=== PATIENT | male | born 1970 | race Caucasian/White ===

== ENCOUNTER 2019-03-19 19:49 | Emergency (ER) | payer SELFPAY ==
--- NOTE | 2019-03-19 21:20 | EDM.PDOC ---
ED HPI GENERAL MEDICAL PROBLEM - General Chief Complaint: Skin Complaint Stated Complaint: INFECTION IN BOTH ANKLES Time Seen by Provider: 03/19/19 19:58 Source of Information: Reports: Patient History Limitations: Reports: No Limitations - History of Present Illness INITIAL COMMENTS - FREE TEXT/NARRATIVE: walked in [employer] the other day; hx of cellulitis to LE; has severe neuropathy; no reason found. Feels the redness, swelling and blisters are worsening; concerned for infection. Onset: Gradual Onset Date: 03/16/19 Location: Reports: Lower Extremity, Left, Lower Extremity, Right Quality: Reports: Burning Severity: Moderate Improves with: Reports: None Worsens with: Reports: None Associated Symptoms: Reports: Rash Treatments RUG INSPECTOR HELPER: Reports: Other (see below) Other Treatments RUG INSPECTOR HELPER: unknown - Related Data Allergies Allergy/AdvReac Type Severity Reaction Status Date / Time No Known Allergies Allergy Verified 03/19/19 21:07 Home Meds: Home Meds *Synthroid 2 tab PO DAILY 03/19/19 [History] Past Medical History Musculoskeletal History: Reports: Fracture Neurological History: Reports: Concussion, Neuropathy, Peripheral Endocrine/Metabolic History: Reports: Hypothyroidism Dermatologic History: Reports: Cellulitis, Chronic Cellulitis - Infectious Disease History Infectious Disease History: Reports: Chicken Pox, Mononucleosis Social & Family History - Tobacco Use Smoking Status *Q: Never Smoker - Caffeine Use Caffeine Use: Reports: Coffee - Recreational Drug Use Recreational Drug Use: No ED ROS GENERAL - Review of Systems Review Of Systems: See Below Constitutional: Reports: No Symptoms Respiratory: Reports: No Symptoms Cardiovascular: Reports: No Symptoms GI/Abdominal: Reports: No Symptoms Musculoskeletal: Reports: No Symptoms Skin: Reports: Rash, Erythema, Other (blisters to both ankles) Neurological: Reports: No Symptoms Psychiatric: Reports: No Symptoms ED EXAM, SKIN/RASH Exam: See Below Exam Limited By: No Limitations General Appearance: Alert, WD/WN, No Apparent Distress Head: Atraumatic, Normocephalic Neck: Normal Inspection Respiratory/Chest: No Respiratory Distress, Lungs Clear, Normal Breath Sounds Cardiovascular: Regular Rate, Rhythm Peripheral Pulses: 3+: Posterior Tibial (L), Posterior Tibial (R), Dorsalis Pedis (L), Dorsalis Pedis (R) GI/Abdominal: Normal Bowel Sounds, Soft Extremities: Normal Range of Motion, Other (has neuropathy; rash present to both ankles with blistering, redness, mild swelling) Skin: Erythema, Rash, Other (blisters) Location, Skin: Upper Extremity, Left (ankles), Lower Extremity, Right Characteristics: Vesicular, Erythematous Associated features: Warmth, Tenderness, Swelling, Inflammation, Weeping Course - Vital Signs Last Recorded V/S: Last Vital Signs Temp 95.7 F 03/19/19 21:09 Pulse 100 03/19/19 21:09 Resp 17 03/19/19 21:09 BP 142/99 H 03/19/19 21:09 Pulse Ox 96 03/19/19 21:09 Departure - Departure Time of Disposition: 21:18 Disposition: Home, Self-Care 01 Condition: Good Clinical Impression: Cellulitis, Cellulitis of lower extremity, Poison jen - Discharge Information *PRESCRIPTION DRUG MONITORING PROGRAM REVIEWED*: Not Applicable *COPY OF PRESCRIPTION DRUG MONITORING REPORT IN PATIENT NATI: Not Applicable Instructions: Cellulitis, Adult Referrals: PCP,None [Primary Care Provider] - Forms: ED Department Discharge - Problem List & Annotations (1) Cellulitis of lower extremity SNOMED Code(s): 876741106 Code(s): L03.119 - CELLULITIS OF UNSPECIFIED PART OF LIMB Status: Acute Priority: Medium Current Visit: Yes Qualifiers: Laterality: left Qualified Code(s): L03.116 - Cellulitis of left lower limb (2) Poison jen SNOMED Code(s): 299234541 Code(s): L23.7 - ALLERGIC CONTACT DERMATITIS DUE TO PLANTS, EXCEPT FOOD Status: Acute Priority: Medium Current Visit: Yes - Problem List Review Problem List Initiated/Reviewed/Updated: Yes
== END 2019-03-19 21:28 | disposition home or self-care (01) ==
LOC: JP.ED 19:49
DX: L23.7 Allergic contact dermatitis due to plants, except food (principal); L03.115 Cellulitis of right lower limb; L03.116 Cellulitis of left lower limb
CPT/HCPCS: 99282

== ENCOUNTER 2025-03-13 05:53 | Emergency (ER) | payer MEDICARE, OTHER ==
[2025-03-13] MEDS: Proparacaine 0.5% Ophth Soln 15 ML Bottle EYELF ONE (06:25)
== END 2025-03-13 06:59 | disposition home or self-care (01) ==
LOC: JP.ED 05:53
DX: H10.32 Unspecified acute conjunctivitis, left eye (principal); E03.9 Hypothyroidism, unspecified; Z79.890 Hormone replacement therapy
CPT/HCPCS: 99283; A9270